=== PATIENT | female | born 1985 | race Caucasian/White ===

== ENCOUNTER 2024-05-22 20:41 | Inpatient (IN) | payer OTHER ==
[~2024-05-22] VITALS: Ht 152.4 cm; Wt 83.0 kg
[2024-05-22] MEDS ORDERED: RINGERS SOLUTION,LACTATED 1,000 ML IV SCH (20:45)
[2024-05-22] MEDS ORDERED: MAGNESIUM SULFATE IN WATER 0.04 GM/ML IV.SOLN IV ONE (20:58)
[2024-05-22] MEDS ORDERED: MAGNESIUM SULFATE IN WATER 4 GM/100 ML PIGGYBACK IV ONE ×2 (20:58→21:15)
[2024-05-22] MEDS ORDERED: ADULT LOW DOSE81 M1 (21:05)
[2024-05-22] MEDS ORDERED: PRENA1 TRUE CO1 EACH (21:05)
[2024-05-22] MEDS ORDERED: MAGNESIUM SULFATE IN WATER 500 ML IV SCH (21:15)
[2024-05-22] MEDS ORDERED: BETAMETHASONE ACETATE,SOD PHOS 30 MG/5 ML ML IM ONE (22:30)
[2024-05-22 23:10] LABS: HEMATOCRIT 34.7 % (36.0-45.00); HEMOGLOBIN 11.9 g/dL (12.0-15.00); MEAN CELL VOLUME 88.3 fL (80.00-100.00); MEAN CORPUSCULAR HEMOGLOBIN 30.3 pg (27.00-32.0); MEAN CORPUSCULAR HGB CONC 34.4 g/dl (32.0-36.0); PLATELET COUNT 341 K/uL (150-450); RED BLOOD COUNT 3.93 M/uL (4.00-6.00); RED CELL DISTRIBUTION WIDTH 13.4 % (11.5-14.5)
[2024-05-22 23:34] LABS: ALBUMIN 2.5 gm/dL (3.4-5.0); BILIRUBIN TOTAL 0.21 mg/dL (0.3-1.2); CALCIUM 9.6 mg/dL (8.5-10.1); CREATININE SERUM 0.5 mg/dL (0.55-1.02); GFR 138.83; POTASSIUM 4.45 mEq/L (3.5-5.1); TOTAL PROTEIN 6.5 gm/dL (6.4-8.2)
[2024-05-23] MEDS ORDERED: ACETAMINOPHEN 500 MG GEL..CAP PO PRN (21:15)
[2024-05-23] MEDS ORDERED: FAMOTIDINE/PF 20 MG/2 ML VIAL IV PUSH NR (21:15)
[2024-05-23] MEDS ORDERED: BETAMETHASONE ACETATE,SOD PHOS 30 MG/5 ML ML IM NR (22:35)
== END 2024-05-24 08:53 | disposition home or self-care (01) | DRG 833 ==
LOC: OBS/DEL 20:41 → LDR 05-23 07:47
PROVIDERS: ADMIT Obstetrics & Gynecology; ATTEND Obstetrics & Gynecology
PROC: 4A1HXCZ Monitoring of Products of Conception, Cardiac Rate, External Approach (ICD-10-PCS; principal; 2024-05-23)
DX: O60.03 Preterm labor without delivery, third trimester (principal); Z3A.32 32 weeks gestation of pregnancy; Z20.822 Contact with and (suspected) exposure to COVID-19

== ENCOUNTER 2024-06-28 12:47 | Inpatient (IN) | payer OTHER ==
[~2024-06-28] VITALS: Ht 152.4 cm; Wt 82.6 kg
[~2024-06-28 12:47] MED LIST: ADULT LOW DOSE81 M1; PRENA1 TRUE CO1 EACH
[2024-07-05 10:14] VITALS: BP 115/74
[2024-07-05] MEDS ORDERED: ERYTHROMYCIN BASE 1 GM TUBE OP ONE (13:13)
[2024-07-05] MEDS ORDERED: CHLORHEXIDINE GLUCONATE 120 ML BOTTLE TOP ONE (13:13)
[2024-07-05] MEDS ORDERED: OXYTOCIN 20 UNITS/1000ML RL PIGGYBAG IV ONE (13:13)
[2024-07-05] MEDS ORDERED: LIDOCAINE HCL 1% 10ML VIAL ONE (13:14)
[2024-07-05] MEDS ORDERED: RINGERS SOLUTION,LACTATED 1,000 ML IV SCH (13:30)
[2024-07-05 14:00] LABS: HEMATOCRIT 38.1 % (36.0-45.00); MEAN CELL VOLUME 87.8 fL (80.00-100.00); MEAN CORPUSCULAR HEMOGLOBIN 30.1 pg (27.00-32.0); MEAN CORPUSCULAR HGB CONC 34.2 g/dl (32.0-36.0); PLATELET COUNT 326 K/uL (150-450); RED BLOOD COUNT 4.34 M/uL (4.00-6.00); RED CELL DISTRIBUTION WIDTH 13.6 % (11.5-14.5)
[2024-07-05 14:01] LABS: URINE APPEARANCE Clear; URINE BILIRRUBIN Negative (NEGATIVE); URINE BLOOD Negative; URINE COLOR Yellow; URINE GLUCOSE Negative (NEGATIVE); URINE KETONE Negative (NEGATIVE); URINE LEUKOCYTE Trace; URINE NITRATE Negative; URINE PROTEIN Negative (NEGATIVE); URINE UROBILINOGEN 0.2 E.U./dl
[2024-07-05 14:04] LABS: URINE BACTERIA 2653.4 uL (0.0-1933); URINE EPITHELIAL CELLS 38.4 uL (0.0-38.8); URINE RBC 4.4 uL (0.0-20.8); URINE WBC 103.4 uL (0.0-23.2)
[2024-07-05 14:25] LABS: ALBUMIN 2.5 gm/dL (3.4-5.0); BILIRUBIN TOTAL 0.32 mg/dL (0.3-1.2); CALCIUM 9.5 mg/dL (8.5-10.1); CREATININE SERUM 0.64 mg/dL (0.55-1.02); GFR 104.41; GLOBULINA 4.4 G/DL (2.4-3.5); POTASSIUM 4.64 mEq/L (3.5-5.1); TOTAL PROTEIN 6.9 gm/dL (6.4-8.2)
[2024-07-05 14:27] LABS: INR 0.95; PARTIAL THROMBOPLASTIN TIME 28.5 SECONDS (22.0-34.0); PROTHROMBIN TIME 10.4 SECONDS (9.0-11.5)
[2024-07-05 14:47] LABS: URINE CAST 0.45 uL (0.0-1.40)
[2024-07-05 15:30] VITALS: BP 138/75
[2024-07-05] MEDS ORDERED: OXYTOCIN 20 UNITS/500ML RL PIGGYBAG IV ONE (16:15)
[2024-07-05] MEDS ORDERED: CHLORHEXIDINE GLUCONATE 120 ML BOTTLE TOP SCH (16:45)
[2024-07-05] MEDS ORDERED: OXYTOCIN 1,000 ML IV SCH (16:45)
[2024-07-05] MEDS ORDERED: ERYTHROMYCIN BASE 1 GM TUBE OP SCH (16:45)
[2024-07-05] MEDS ORDERED: IBUprofen 400 MG TABLET PO PRN (16:45)
[2024-07-05] MEDS ORDERED: OXYTOCIN 20 UNITS/500ML RL PIGGYBAG IV SCH (17:45)
[2024-07-05 18:46] VITALS: BP 140/80
[2024-07-06 01:29] VITALS: BP 132/83
[2024-07-06 06:01] VITALS: BP 123/82
[2024-07-06 06:50] LABS: HEMOGLOBIN 11.3 g/dL (12.0-15.00); MEAN CORPUSCULAR HEMOGLOBIN 29.9 pg (27.00-32.0); MEAN CORPUSCULAR HGB CONC 34.4 g/dl (32.0-36.0); PLATELET COUNT 301 K/uL (150-450); RED BLOOD COUNT 3.79 M/uL (4.00-6.00); RED CELL DISTRIBUTION WIDTH 13.8 % (11.5-14.5)
[2024-07-06 16:10] VITALS: BP 132/86
[2024-07-06 20:00] VITALS: BP 140/80
[2024-07-07 01:32] VITALS: BP 125/84
[2024-07-07 13:50] VITALS: BP 118/74
== END 2024-07-07 14:11 | disposition home or self-care (01) | DRG 807 ==
LOC: LDR 07-05 13:15 → OB/GYN 07-05 18:14
PROVIDERS: Obstetrics & Gynecology; Obstetrics & Gynecology Gynecology; ADMIT Obstetrics & Gynecology; ATTEND Obstetrics & Gynecology
PROC: 10E0XZZ Delivery of Products of Conception, External Approach (ICD-10-PCS; principal; 2024-07-05)
PROC: 0KQM0ZZ Repair Perineum Muscle, Open Approach (ICD-10-PCS; 2024-07-05)
PROC: 4A1HXCZ Monitoring of Products of Conception, Cardiac Rate, External Approach (ICD-10-PCS; 2024-07-05)
DX: O70.1 Second degree perineal laceration during delivery (principal); Z37.0 Single live birth; Z3A.38 38 weeks gestation of pregnancy; Z20.822 Contact with and (suspected) exposure to COVID-19